=== PATIENT | female | born 1990 | race African-American/Black ===

== ENCOUNTER 2019-07-07 07:22 | Emergency (ER) | payer MEDICAID ==
[~2019-07-07] VITALS: Ht 165.1 cm; Wt 79.9 kg
[~2019-07-07 07:22] MED LIST: ALBU18HF2 INH; ALBU8.5H8 IH; AZIT-63 PO; BENZ-38 PO; FLUT16SP20 BOTHNARES; GUAI120015 PO; NO HOME MEDS; ONDA4TAB12 PO
[2019-07-07 07:41] VITALS: BP 100/68
[2019-07-07] MEDS ORDERED: PENI250T2 PO (08:16)
[2019-07-07] MEDS ORDERED: LIDO20SO16 PO (08:16)
[2019-07-07] MEDS ORDERED: NAPR-56 PO (08:16)
[2019-07-07] MEDS ORDERED: dexamethasone sod phosphate 10mg/ml inj IM STA (08:17)
[2019-07-07] MEDS ORDERED: ketorolac trometh inj. 60 MG/2 ML VIAL IM ONE (08:20)
== END 2019-07-07 08:41 | disposition home or self-care (01) ==
LOC: ER 07:23
DX: J02.0 Streptococcal pharyngitis (principal); B95.5 Unspecified streptococcus as the cause of diseases classified elsewhere; F12.90 Cannabis use, unspecified, uncomplicated; Z90.49 Acquired absence of other specified parts of digestive tract; Z98.890 Other specified postprocedural states; Z79.899 Other long term (current) drug therapy
CPT/HCPCS: 96372; 99283; J1100; J1885